=== PATIENT | male | born 1975 | race African-American/Black ===

== ENCOUNTER 2022-06-16 06:52 | Inpatient (IN) | payer OTHER ==
[2022-06-16 07:18] LABS: Urine Blood Negative (Negative); Urine Glucose Negative (Negative); Urine Protein Negative (Negative); Urine Specific Gravity 1.015 (1.005-1.030)
[2022-06-16] MEDS ORDERED: NA CHLORIDE 0.9% 1,000 ML ONE (07:26)
[2022-06-16 07:48] LABS: Absolute Lymphocytes (CBC) 1.8 K/uL (0.7-4.9); Hematocrit 43.6 % (39.6-49.0); Lymphocytes % 23.7 % (15.3-44.8); MCV 78.1 fL (80-100); MPV 8.1 fL (7.6-11.3); RBC Red Blood Cell Count 5.59 M/uL (4.33-5.43)
[2022-06-16 07:51] LABS: Urine Mucus Slight /HPF (None Seen); Urine RBC <5 /HPF (None Seen)
[2022-06-16 08:07] LABS: Albumin 3.7 g/dL (3.4-5.0); Bilirubin Total 0.3 mg/dL (0.2-1.0); Potassium 3.8 mmol/L (3.5-5.1); Protein, Total 7.8 g/dL (6.4-8.2)
--- NOTE | 2022-06-16 09:23 | RAD REPORT ---
EXAM DESCRIPTION: CT - Abdomen Pelvis W Contrast - 06/16/2022 8:51 am CLINICAL HISTORY: Abdominal pain COMPARISON: none. TECHNIQUE: Computed axial tomography of the abdomen pelvis was obtained. 100 cc Isovue-300 was admin istered intravenously. Oral contrast was not requested which limits evaluation of bowel and appendix All CT scans are performed using dose optimization technique as appropriate and may include automated exposure control or mA/KV adjustment according to patient size. FINDINGS: The liver, spleen, pancreas, adrenal and left kidney appear unremarkable. 2 millimeter calculus left kidney. No hydronephrosis There is no evidence of diverticulitis. The appendix is not well visualized but no gross abnormality is seen. Cholelithiasis. Gallbladder wall is thickened. Small to moderate umbilical hernia. Small to moderate right and small left inguinal hernias contain f at IMPRESSION: Cholelithiasis. Thickening of the gallbladder wall probably cholecystitis
--- NOTE | 2022-06-16 11:12 | RAD REPORT ---
EXAM DESCRIPTION: US - Abdomen Exam Limited - 06/16/2022 10:27 am CLINICAL HISTORY: Abdominal pain. COMPARISON: June 16, 2022 CT FINDINGS: 1 centimeter stone gallbladder neck. Gallbladder wall is moderately thickened measuring 6 millimeters Mild dilatation common bile duct IMPRESSION: Cholelithiasis. Thickened gallbladder wall probably cholecystitis. Mild dilatation common bile duct
--- NOTE | 2022-06-16 11:24 | ER ---
Nurse's Notes [facility] Name: Roni Gallagher Age: 46 yrs Sex: Male : 1975 Arrival Date: 06/16/2022 Time: 06:59 Bed 20 Private MD: Diagnosis: Acute cholecystitis;Other abdominal pain;Essential (primary) hypertension Presentation: 06/16 07:06 Chief complaint: Patient states: I am having lower back pain, I couldn't sleep very aa9 well. Coronavirus screen: Vaccine status: Patient reports receiving the 1st dose of the Covid vaccine. Ebola Screen: No symptoms or risks identified at this time. Initial Sepsis Screen: Does the patient meet any 2 criteria? HR > 90 bpm. Yes Does the patient have a suspected source of infection? No. Patient's initial sepsis screen is negative. Risk Assessment: Do you want to hurt yourself or someone else? Patient reports no desire to harm self or others. Onset of symptoms was June 16, 2022. 07:06 Method Of Arrival: Ambulatory aa9 07:06 Acuity: MELONY 3 aa9 Triage Assessment: 07:08 General: Appears comfortable, Behavior is calm, cooperative, appropriate for age. Pain: aa9 Complains of pain in low back area and left low back Pain currently is 7 out of 10 on a pain scale. EENT: No signs and/or symptoms were reported regarding the EENT system. Neuro: Level of Consciousness is awake, alert, obeys commands. Cardiovascular: Patient's skin is warm and dry. Respiratory: Airway is patent Respiratory effort is even, unlabored. GI: No signs and/or symptoms were reported involving the gastrointestinal system. : Denies urinary frequency. Derm: No signs and/or symptoms reported regarding the dermatologic system. Historical: - Allergies: 07:07 No Known Allergies; aa9 - Home Meds: 07:07 None [Active]; aa9 - PMHx: 07:07 Hypertensive disorder; aa9 - PSHx: 07:07 knee replacement; aa9 - Immunization history:: Client reports receiving the 1st dose of the Covid vaccine. - Social history:: Smoking status: Patient denies any tobacco usage or history of. Screenin:09 Abuse screen: Denies threats or abuse. Denies injuries from another. Nutritional aa9 screening: No deficits noted. Tuberculosis screening: No symptoms or risk factors identified. Fall Risk None identified. Assessment: 07:10 General: Appears in no apparent distress. Behavior is calm, cooperative, appropriate mb8 for age. Pain: Complains of pain in epigastric area Pain does not radiate. Pain. GI: Reports epigastric pain, Patient currently denies bloody stool, constipation, diarrhea, nausea, vomiting. : No deficits noted. Denies burning with urination, urinary frequency. 08:00 Reassessment: Patient and/or family updated on plan of care and expected duration. Pain mb8 level reassessed. Patient is alert, oriented x 3, equal unlabored respirations, skin warm/dry/pink. 09:03 Reassessment: Patient and/or family updated on plan of care and expected duration. Pain mb8 level reassessed. Patient is alert, oriented x 3, equal unlabored respirations, skin warm/dry/pink. 10:17 Reassessment: Patient and/or family updated on plan of care and expected duration. Pain mb8 level reassessed. Patient is alert, oriented x 3, equal unlabored respirations, skin warm/dry/pink. 13:18 Reassessment: Patient and/or family updated on plan of care and expected duration. Pain mb8 level reassessed. Patient is alert, oriented x 3, equal unlabored respirations, skin warm/dry/pink. 14:31 Reassessment: Patient and/or family updated on plan of care and expected duration. Pain mb8 level reassessed. Patient is alert, oriented x 3, equal unlabored respirations, skin warm/dry/pink. Vital Signs: 07:06 BP 133 / 93; Pulse 105; Resp 19 S; Pulse Ox 100% on R/A; Weight 121.11 kg (R); Height 5 aa9 ft. 11 in. (180.34 cm) (R); Pain 7/10; 07:33 BP 108 / 72; Pulse 92; Resp 16; Temp 97.7; Pulse Ox 100% on R/A; Pain 6/10; mb8 08:00 BP 117 / 75; Pulse 93; Resp 18; Pulse Ox 99% on R/A; mb8 09:10 BP 140 / 101; Pulse 85; Resp 18; Pulse Ox 99% on R/A; Pain 5/10; mb8 10:17 BP 132 / 98; Pulse 85; Pulse Ox 100% on R/A; Pain 5/10; mb8 13:17 BP 126 / 88; Pulse 78; Resp 16; Pulse Ox 100% on R/A; mb8 14:30 BP 122 / 80; Pulse 70; Resp 14; Temp 98; Pulse Ox 99% ; mb8 07:06 Body Mass Index 37.24 (121.11 kg, 180.34 cm) aa9 ED Course: 06:59 Patient arrived in ED. ja2 07:01 Marcus Drake DO is Attending Physician. ms3 07:03 Kalen Hager, DIANE is Primary Nurse. mb8 07:07 Triage completed. aa9 07:09 Arm band placed on. aa9 07:16 Patient has correct armband on for positive identification. Placed in gown. Bed in low mb8 position. Call light in reach. Side rails up X2. Client placed on continuous cardiac and pulse oximetry monitoring. NIBP monitoring applied. 07:16 No provider procedures requiring assistance completed. Urine collected:. mb8 07:24 Inserted saline lock: 20 gauge in right antecubital area, using aseptic technique. mb8 Blood collected. 07:24 CBC with Diff Sent. mb8 07:24 CMP Sent. mb8 08:53 CT Abd/Pelvis - IV Contrast Only In Process Unspecified. EDMS 10:29 US Abdomen Limited In Process Unspecified. EDMS 11:23 Rudy Israel MD is Hospitalizing Provider. ms3 Administered Medications: 07:32 Drug: NS 0.9% 1000 ml Route: IV; Rate: 1 bolus; Site: right antecubital; mb8 09:00 Follow up: IV Status: Completed infusion mb8 11:34 Drug: Zosyn (piperacillin-tazobactam) 3.375 grams Route: IVPB; Infused Over: 60 mins; mb8 Site: right antecubital; 12:00 Follow up: IV Status: Completed infusion mb8 12:40 Follow up: IV Status: Completed infusion mb8 Medication: 07:16 VIS not applicable for this client. mb8 Outcome: 11:24 Decision to Hospitalize by Provider. ms3 14:55 Admitted to accompanied by nurse, via wheelchair, with chart, Report called to Surgery hui Ramos 14:55 Admitted to accompanied by nurse, via wheelchair, with chart, Report called to surgery rn at bedside, DIANE Ramos 14:55 Condition: stable 14:56 Patient left the ED. mb8 Signatures: Dispatcher [employer] EDMS Marcus Drake, DO ms3 Shakila Del Angel Aylin, RN RN aa9 Kalen Hager RN RN mb8 Corrections: (The following items were deleted from the chart) 07:33 07:33 BP 108 / 72; Pulse 92bpm; Resp 16bpm; Pulse Ox 100% RA; Temp 97.7F; Pain 4/10; mb8mb8
--- NOTE | 2022-06-16 11:25 | EDPHYS ---
Physician Documentation [facility] Name: Roni Gallagher Age: 46 yrs Sex: Male : 1975 Arrival Date: 06/16/2022 Time: 06:59 Bed 20 Private MD: ED Physician Marcus Drake HPI: 06/16 08:09 This 46 yrs old Black Male presents to ER via Ambulatory with complaints of Abdominal ms3 pain. 08:10 The patient presents with abdominal pain right lower quadrant. Onset: The ms3 symptoms/episode began/occurred yesterday. The symptoms do not radiate. Associated signs and symptoms: none. The symptoms are described as achy. Modifying factors: the symptoms are aggravated by nothing. 08:34 Severity of pain: At its worst the pain was severe in the emergency department the pain ms3 is unchanged. Historical: - Allergies: 07:07 No Known Allergies; aa9 - Home Meds: 07:07 None [Active]; aa9 - PMHx: 07:07 Hypertensive disorder; aa9 - PSHx: 07:07 knee replacement; aa9 - Immunization history:: Client reports receiving the 1st dose of the Covid vaccine. - Social history:: Smoking status: Patient denies any tobacco usage or history of. ROS: 08:34 Constitutional: Negative for fever, and chills. Neck: Negative for injury, pain, and ms3 swelling, Cardiovascular: Negative for chest pain, and palpitations. Respiratory: Negative for shortness of breath, cough, wheezing, and pleuritic chest pain. 08:34 Skin: Negative for injury, rash, and discoloration, Psych: Negative for depression, anxiety, suicide ideation, homicidal ideation, and hallucinations. 08:34 Abdomen/GI: Positive for abdominal pain. 08:34 All other systems are negative. Exam: 08:34 Constitutional: This is a well developed, well nourished patient who is awake, alert, ms3 and in no acute distress. Head/Face: Normocephalic, atraumatic. Chest/axilla: Normal chest wall appearance and motion. Nontender with no deformity. Cardiovascular: Regular rate and rhythm with a normal S1 and S2. No gallops, murmurs, or rubs. Normal PMI, no JVD. No pulse deficits. Respiratory: Lungs have equal breath sounds bilaterally, clear to auscultation and percussion. No rales, rhonchi or wheezes noted. No increased work of breathing, no retractions or nasal flaring. Skin: Warm, dry with normal turgor. Normal color with no rashes, no lesions, and no evidence of cellulitis. MS/ Extremity: Pulses equal, no cyanosis. Neurovascular intact. Full, normal range of motion. Psych: Awake, alert, with orientation to person, place and time. Behavior, mood, and affect are within normal limits. 08:34 Abdomen/GI: Inspection: abdomen appears normal, Bowel sounds: normal, Palpation: moderate abdominal tenderness, in the right lower quadrant. Vital Signs: 07:06 BP 133 / 93; Pulse 105; Resp 19 S; Pulse Ox 100% on R/A; Weight 121.11 kg (R); Height 5 aa9 ft. 11 in. (180.34 cm) (R); Pain 7/10; 07:33 BP 108 / 72; Pulse 92; Resp 16; Temp 97.7; Pulse Ox 100% on R/A; Pain 6/10; mb8 08:00 BP 117 / 75; Pulse 93; Resp 18; Pulse Ox 99% on R/A; mb8 09:10 BP 140 / 101; Pulse 85; Resp 18; Pulse Ox 99% on R/A; Pain 5/10; mb8 10:17 BP 132 / 98; Pulse 85; Pulse Ox 100% on R/A; Pain 5/10; mb8 13:17 BP 126 / 88; Pulse 78; Resp 16; Pulse Ox 100% on R/A; mb8 14:30 BP 122 / 80; Pulse 70; Resp 14; Temp 98; Pulse Ox 99% ; mb8 07:06 Body Mass Index 37.24 (121.11 kg, 180.34 cm) aa9 MDM: 07:18 Patient medically screened. ms3 08:34 Differential diagnosis: appendicitis, bowel obstruction, diverticulitis, gastritis, ms3 gastroesophageal reflux disease. 11:25 Data reviewed: vital signs, nurses notes, lab test result(s), radiologic studies, and ms3 as a result, I will admit patient. Counseling: I had a detailed discussion with the patient and/or guardian regarding: the historical points, exam findings, and any diagnostic results supporting the discharge/admit diagnosis, lab results, the need for further work-up and treatment in the hospital. ED course: Discussed case with Dr Stout and will try for OR today. Keep npo. Discussed case with Dr Israel and he accepts patient. Discussed plan for admission with patient and he understands/ agrees with plan.. 06/16 07:18 Order name: Urine Dipstick-Ancillary; Complete Time: 07:56 EDMS 06/16 07:23 Order name: CBC with Diff; Complete Time: 07:56 ms3 06/16 07:23 Order name: CMP; Complete Time: 08:08 ms3 06/16 07:23 Order name: Urine Microscopic Only; Complete Time: 07:56 ms3 06/16 12:32 Order name: CBC with Automated Diff EDMS 06/16 12:32 Order name: CBC with Automated Diff EDMS 06/16 07:23 Order name: CT Abd/Pelvis - IV Contrast Only; Complete Time: 09:28 ms3 06/16 09:29 Order name: US Abdomen Limited; Complete Time: 11:15 ms3 06/16 12:32 Order name: Comprehensive Metabolic Panel EDMS 06/16 12:32 Order name: Comprehensive Metabolic Panel EDMS 06/16 12:32 Order name: Magnesium EDMS 06/16 12:32 Order name: Magnesium EDMS 06/16 12:34 Order name: SARS RAPID eb 06/16 14:05 Order name: SARS-COV-2 Antigen Rapid EDMS 06/16 07:23 Order name: IV Saline Lock; Complete Time: 07:24 ms3 06/16 07:23 Order name: Labs collected and sent; Complete Time: 07:24 ms3 06/16 07:23 Order name: Urine Dipstick-Ancillary (obtain specimen); Complete Time: 07:24 ms3 06/16 11:28 Order name: NPO; Complete Time: 11:28 mb8 06/16 12:30 Order name: CONS Physician Consult EDMS 06/16 12:32 Order name: NPO EDMS Administered Medications: 07:32 Drug: NS 0.9% 1000 ml Route: IV; Rate: 1 bolus; Site: right antecubital; mb8 09:00 Follow up: IV Status: Completed infusion mb8 11:34 Drug: Zosyn (piperacillin-tazobactam) 3.375 grams Route: IVPB; Infused Over: 60 mins; mb8 Site: right antecubital; 12:00 Follow up: IV Status: Completed infusion mb8 12:40 Follow up: IV Status: Completed infusion mb8 Disposition Summary: 06/16/22 11:24 Hospitalization Ordered Hospitalization Status: Inpatient Admission ms3 Provider: Rudy Israel ms3 Location: Telemetry/MedSurg (Inpatient) ms3 Condition: Stable ms3 Problem: new ms3 Symptoms: are unchanged ms3 Bed/Room Type: Standard ms3 Room Assignment: ms3 Diagnosis - Acute cholecystitis ms3 - Other abdominal pain ms3 - Essential (primary) hypertension ms3 Forms: - Medication Reconciliation Form ms3 - SBAR form ms3 Signatures: Dispatcher [employer] EDMarcus Davies, DO ms3 Laine Bailey RN RN aa9 Kalen Hager RN RN mb8 Corrections: (The following items were deleted from the chart) 08:34 08:10 The symptoms are described as achy, ms3 ms3
[2022-06-16] MEDS ORDERED: NA CHLORIDE 0.9% 100 ML IV ONE (11:27)
[2022-06-16] MEDS ORDERED: PIPERACIL/TAZO 3.375 GM VIAL IV ONE (11:27)
[2022-06-16] MEDS ORDERED: MORPHINE 4 MG/ML SYR IV PRN (12:28)
[2022-06-16] MEDS ORDERED: ONDANSETRON 4 MG/2 ML VIAL IV PRN ×2 (12:28)
--- NOTE | 2022-06-16 12:32 | P.HP ---
Certification for Inpatient Patient admitted to: Inpatient Practitioner: I am a practitioner with admitting privileges, knowledge of patient current condition, hospital course, and medical plan of care. Services: Services provided to patient in accordance with Admission requirements found in Title 42 Section 412.3 of the Code of Federal Regulations Patient History Date of Service: 06/16/22 Reason for admission: acute cholecystitis, cholelithiasis History of Present Illness: 46yo M, PMH: HTN Presents to ED due to worsening RUQ/epigastric pain since yesterday. He reports intermittent abdominal pains, more frequent in last month. No particular association. Nothing improves/worsens the pain. No radiation. +chills, no fever, +nausea, no diarrhea. Last ate yesterday. In the ED, CT abd/pelvis and rUQ U/S: cholelithiasis at GB neck, GB wall thickening concerning for cholecystitis. Dr. Stout consulted in ED, with tentative plan for lap malgorzata later today. Patient does not appear septic. Allergies No Known Allergies Allergy (Verified 06/16/22 13:58) - Past Medical/Surgical History -: HTN -: R knee surgery - Family History Father -: Cancer (colon) - Social History Smoking Status: Never smoker Alcohol use: Yes Place of Residence: Home Review of Systems 10-point ROS is otherwise unremarkable Physical Examination - Physical Exam General: Alert, Oriented x3, Other (uncomfortable appearing) Neck: Supple, No LAD Respiratory: Clear to auscultation bilaterally, Normal air movement Cardiovascular: No edema, Regular rate/rhythm Gastrointestinal: Soft and benign, Non-distended, Tenderness (RUQ) Musculoskeletal: No contractures, No tenderness Integumentary: No rashes, No significant lesion Neurological: Normal speech, Normal strength at 5/5 x4 extr, Normal affect - Studies Laboratory Data (last 24 hrs) 06/16/22 07:30: Sodium 134 L, Potassium 3.8, BUN 12, Creatinine 1.55 H, Glucose 92, Total Bilirubin 0.3, AST 34, ALT 32, Alkaline Phosphatase 43 L 06/16/22 07:30: WBC 7.40, Hgb 14.5, Hct 43.6, Plt Count 281 Assessment and Plan - Advance Directives Does patient have a Living Will: No Does patient have a Durable POA for Healthcare: No Physician Review Additional Text: Problem list Cholelithiasis with Acute cholecystitis Hypertension Patient with right upper quadrant tenderness, CT and ultrasound done in ED, with gallbladder wall thickening, findings concerning for cholecystitis Stone at neck of gallbladder, mild dilatation Patient does not appear septic Received Zosyn in the ED, continue Zosyn N.p.o., IV fluids General surgery consulted in the ED, possible surgery today SCDs VTE: SCDs Code: full Dispo: home, ~1-2 days Time Spent Managing Pts Care (In Minutes): 65
[2022-06-16 14:04] LABS: SARS-CoV-2 Antigen Rapid Res Negative (Negative)
[2022-06-16] MEDS: NA CHLORIDE 0.9% 1,000 ML IV SCH ×2 (14:45→23:00)
[2022-06-16] MEDS ORDERED: SUCCINYLCHOLINE 20 MG/ML (10 ML) IV ONE (15:58)
[2022-06-16] MEDS ORDERED: MIDAZOLAM HCL 2 MG/2 ML INJ ONE (16:03)
[2022-06-16] MEDS ORDERED: ROCURONIUM 50 MG/5 ML VIAL IV ONE (16:03)
[2022-06-16] MEDS ORDERED: FENTANYL CITR 100 MCG/2 ML ONE (16:03)
[2022-06-16] MEDS ORDERED: propofoL 200 MG/20 ML VIAL IV ONE ×2 (16:03→17:06)
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
[2022-06-16] MEDS ORDERED: GLYCOPYRROLATE 0.2 MG/ML SYR ONE (16:55)
[2022-06-16] MEDS ORDERED: dexAMETHasone 10 MG/ML VIAL ONE (17:30)
--- NOTE | 2022-06-16 18:14 | P.OP ---
Preoperative diagnosis: Acute cholecystitis with cholelithiasis Postoperative diagnosis: The same Primary procedure: Surgery canceled during induction of anesthesia Operative Technique: The patient brought the operating room and placed supine on the table. Anesthesia went through the usual protocol for placing the patient asleep. The patient has large tongue, and become apneic. It was extremely difficult to bag the patient due to the loss of airway. [place] scope was was used on 2 attempts. We were not able to secure an adequate airway. A CODE BLUE was called to ensure we had adequate personnel should the situation deteriorate, but we were able to eventually control his airway While the patient has strong need for surgery due to the impaction of the stone, he is not septic, his white cell count is normal, he has no elevation of his liver enzymes. I chose to cancel his surgery, we will allow him to recover from this episode, we will discuss with him and with anesthesia may be early next week about possible airway options that can be utilized. At the end of the procedure the patient was breathing spontaneously, easily able to maintain 100%, his heart rate had returned to normal and as did his blood pressure. He was stable and sent to the recovery room. Transferred to: Recovery Room Condition: Good
--- NOTE | 2022-06-16 18:23 | RAD REPORT ---
EXAM DESCRIPTION: RAD - Chest Single View - 06/16/2022 6:15 pm CLINICAL HISTORY: R/O aspiration COMPARISON: No comparisons FINDINGS: Lines: None. Lungs: No evidence of edema or pneumonia. Pleural: No significant pleural effusions or pneumothorax. Cardiac: The heart size is within normal limits. Mediastinum: Uncoiling of the thoracic aorta. Bones: No acute fractures. Other: Postoperative finding in the left chest wall. IMPRESSION: No acute cardiopulmonary disease.
[2022-06-16] MEDS: PIPER TAZO 3.375 GM in NA CHLORIDE 0.9% 100 ML IV SCH (20:24)
--- NOTE | 2022-06-16 20:27 | P.PN ---
Date of Service: 06/16/22 Brief event note: Patient taken to [facility] for lap malgorzata. Code Castillo called just after ~5pm Upon arrival - patient being bagged, difficulty establishing airway secondary to large tongue, inability to visualize vocal cords. 2 additional attempts made by Anesthesiologist using glidescope and were unsuccessful. Decision was made to cancel procedure. Patient was maintained on oxygen supplementation while anesthesia wore off. He was responsive, tachycardic, coughing, and improved. Given solumedrol CXR, EKG ordered will monitor in ICU overnight ice chips/sips of water overnight if does ok after bedside swallow
[2022-06-16 22:25] VITALS: BMI 37.2
[2022-06-17] MEDS: NA CHLORIDE 0.9% 1,000 ML IV SCH (01:36)
[2022-06-17] MEDS: PIPER TAZO 3.375 GM in NA CHLORIDE 0.9% 100 ML IV SCH (03:56)
[2022-06-17 04:39] LABS: Absolute Lymphocytes (CBC) 0.6 K/uL (0.7-4.9); Hematocrit 43.2 % (39.6-49.0); Lymphocytes % 6.2 % (15.3-44.8); MCV 78.5 fL (80-100); MPV 7.6 fL (7.6-11.3); RBC Red Blood Cell Count 5.51 M/uL (4.33-5.43)
[2022-06-17 04:50] LABS: Albumin 3.2 g/dL (3.4-5.0); Bilirubin Total 0.6 mg/dL (0.2-1.0); Magnesium 1.9 mg/dL (1.8-2.4); Potassium 4.7 mmol/L (3.5-5.1); Protein, Total 7.4 g/dL (6.4-8.2)
[2022-06-17 08:30] VITALS: TEMP 96.8
[2022-06-17 09:44] VITALS: O2SAT 100
[2022-06-17 10:17] VITALS: BP 135/82
[2022-06-17] MEDS ORDERED: PIPER TAZO 3.375 GM in NA CHLORIDE 0.9% 100 ML IV SCH (12:00)
--- NOTE | 2022-06-17 14:35 | P.DS ---
Admission Date: 06/16/22 Discharge Date: 06/17/22 Disposition: ROUTINE DISCHARGE Discharge Condition: GOOD Reason for Admission: acute cholecystitis, cholelithiasis Consultations: General surgery - Dr. Stout Brief History of Present Illness: 46yo M, PMH: HTN Presents to ED due to worsening RUQ/epigastric pain since yesterday. He reports intermittent abdominal pains, more frequent in last month. No particular association. Nothing improves/worsens the pain. No radiation. +chills, no fever, +nausea, no diarrhea. Last ate yesterday. In the ED, CT abd/pelvis and rUQ U/S: cholelithiasis at GB neck, GB wall thickening concerning for cholecystitis. Dr. Stout consulted in ED, with tentative plan for lap malgorzata later today. Patient does not appear septic. Hospital Course: Problem list Acute cholecystitis with cholelithiasis Hypertension Patient presented with abdominal pain and nausea. CT abdomen and ultrasound noted gallbladder stone and mild wall thickening concerning for cholecystitis. General Surgery was consulted, and took patient to OR in evening of 06/16 for planned lap cholecystectomy. Patient was a difficult airway to intubate. After difficulty with multiple attempts, the surgery was cancelled. Patient was monitored overnight and did well. Diet advanced to full liquids. He was afebrile, without leukocytosis, pain improved. Dr. Stout recommended 2 weeks of antibiotics, continue full liquid diet at home, slowly incorporating soft foods - low fat/low fiber. Follow up with Dr. Stout in 1-2 weeks, plan for elective cholecystectomy in near future. Follow up with PCP within 1 week. Vital Signs/Physical Exam: Temp Pulse Resp BP Pulse Ox 96.8 F 113 H 23 H 135/82 100 06/17/22 09:50 06/17/22 09:50 06/17/22 09:50 06/17/22 09:50 06/17/22 09:50 General: Alert, In no apparent distress, Oriented x3 HEENT: EOMI, Sclerae nonicteric Neck: Supple, No LAD Respiratory: Clear to auscultation bilaterally, Normal air movement Cardiovascular: No edema, Regular rate/rhythm Gastrointestinal: Soft and benign, Non-distended, Tenderness (Minimal RUQ) Musculoskeletal: No swelling, No tenderness Integumentary: No rashes, No significant lesion Neurological: Normal speech, Normal affect Laboratory Data at Discharge: WBC 10.20 K/uL (4.3-10.9) 06/17/22 04:15 Hgb 14.5 g/dL (13.6-17.9) 06/17/22 04:15 Hct 43.2 % (39.6-49.0) 06/17/22 04:15 Plt Count 288 K/uL (152-406) 06/17/22 04:15 Sodium 135 mmol/L (136-145) L 06/17/22 04:15 Potassium 4.7 mmol/L (3.5-5.1) D 06/17/22 04:15 BUN 13 mg/dL (7-18) 06/17/22 04:15 Creatinine 1.44 mg/dL (0.55-1.3) H 06/17/22 04:15 Glucose 111 mg/dL (74-106) H 06/17/22 04:15 Magnesium 1.9 mg/dL (1.8-2.4) 06/17/22 04:15 Total Bilirubin 0.6 mg/dL (0.2-1.0) 06/17/22 04:15 AST 38 U/L (15-37) H 06/17/22 04:15 ALT 30 U/L (12-78) 06/17/22 04:15 Alkaline Phosphatase 36 U/L (45-117) L 06/17/22 04:15 Home Medications: Lisinopril/Hydrochlorothiazide [Lisinopril-Hctz 20-12.5 mg Tab] 1 each PO BEDTIME 06/17/22 levoFLOXacin [Levofloxacin] 750 mg PO DAILY 14 Days #14 tab 06/17/22 metroNIDAZOLE [Flagyl] 500 mg PO Q8H 14 Days #42 tab 06/17/22 New Medications: metroNIDAZOLE [Flagyl] 500 mg PO Q8H 14 Days #42 tab levoFLOXacin [Levofloxacin] 750 mg PO DAILY 14 Days #14 tab Physician Discharge Instructions: Patient presented with abdominal pain and nausea. CT abdomen and ultrasound noted gallbladder stone and mild wall thickening concerning for cholecystitis. General Surgery was consulted, and took patient to OR in evening of 06/16 for planned lap cholecystectomy. Patient was a difficult airway to intubate. After difficulty with multiple attempts, the surgery was cancelled. Patient was monitored overnight and did well. Diet advanced to full liquids. He was afebrile, without leukocytosis, pain improved. Dr. Stout recommended 2 weeks of antibiotics, continue full liquid diet at home, slowly incorporating soft foods - low fat/low fiber. Follow up with Dr. Stout in 1-2 weeks, plan for elective cholecystectomy in near future. Follow up with PCP within 1 week. Followup: Varun Stout MD [ACTIVE - CAN ADMIT] - (follow up in 1-2 weeks to set up surg.) Michael Valentin MD [OUTSIDE PHYSICIAN] - (follow up in one week. call for an apointment) Time spent managing pt's care (in minutes): 45
--- NOTE | 2022-06-19 16:05 | EKG ---
Test Date: 2022-06-16 Test Time: 18:01:54 Bridge Expert: MANDEEP MEASUREMENT RESULTS: Intervals: Rate: 105 NM: 148 QRSD: 84 QT: 328 QTc: 433 [place]: P: 55 NM: 148 QRS: 43 T: 29 INTERPRETIVE STATEMENTS: Sinus tachycardia Early repolarization Otherwise normal ECG No previous ECG available for comparison Electronically Signed On 06-19-22 15:59:59 CDT by Gilbert Vila
== END 2022-06-17 10:15 | disposition home or self-care (01) | DRG 446 ==
LOC: ER 06:52 → ERHOLD 12:27 → 3RD-ICU 19:38
PROVIDERS: ADMIT Hospitalist; ATTEND Hospitalist
DX: K80.00 Calculus of gallbladder with acute cholecystitis without obstruction (principal); I10 Essential (primary) hypertension; T41.45XA Adverse effect of unspecified anesthetic, initial encounter; R06.81 Apnea, not elsewhere classified; Z53.8 Procedure and treatment not carried out for other reasons; Z28.311 Partially vaccinated for COVID-19; Z96.659 Presence of unspecified artificial knee joint; Z79.899 Other long term (current) drug therapy; Z20.822 Contact with and (suspected) exposure to COVID-19
CPT/HCPCS: 36415; 71045; 74177; 76705; 80053; 81003; 81015; 83735; 85025; 87811; 93005; 94760; 96361; 96365; 99285; J0330; J1100; J2250; J2543; J2704; J3010; J7030; Q9967

== ENCOUNTER 2022-07-10 02:22 | Inpatient (IN) | payer OTHER, SELFPAY ==
[2022-07-10] MEDS ORDERED: MORPHINE 4 MG/ML SYR ONE (02:59)
[2022-07-10] MEDS ORDERED: ONDANSETRON 4 MG/2 ML VIAL ONE ×2 (02:59→10:51)
[2022-07-10 03:23] LABS: Urine Blood Negative (Negative); Urine Glucose Negative (Negative); Urine Protein Negative (Negative)
[2022-07-10 03:44] LABS: Absolute Lymphocytes (CBC) 2.9 K/uL (0.7-4.9); Lymphocytes % 40.6 % (15.3-44.8); MPV 8.2 fL (7.6-11.3); RBC Red Blood Cell Count 5.63 M/uL (4.33-5.43)
[2022-07-10 04:03] LABS: Albumin 3.3 g/dL (3.4-5.0); Bilirubin Total 0.4 mg/dL (0.2-1.0); Potassium 3.5 mmol/L (3.5-5.1); Protein, Total 7.3 g/dL (6.4-8.2)
[2022-07-10 04:28] LABS: Urine RBC <5 /HPF (None Seen)
[2022-07-10] MEDS ORDERED: PIPERACIL/TAZO 4.5 GM VIAL IV ONE (04:46)
[2022-07-10] MEDS ORDERED: NA CHLORIDE 0.9% 1,000 ML ONE ×2 (04:46→06:13)
[2022-07-10] MEDS ORDERED: NA CHLORIDE 0.9% 100 ML IV ONE (04:46)
--- NOTE | 2022-07-10 05:12 | ER ---
Nurse's Notes [facility] Name: Roni Gallagher Jr Age: 46 yrs Sex: Male : 1975 Arrival Date: 07/10/2022 Time: 02:25 Bed 25 Private MD: Diagnosis: Acute cholecystitis Presentation: 07/10 02:30 Chief complaint: Patient states: "I think it is my gallbladder. Last time I had pain tw5 like this it was my gallbladder." Patient states the last time he ate was at 1800 and it was a burger. Coronavirus screen: Vaccine status: Patient reports receiving the 2nd dose of the covid vaccine. Unknown. Ebola Screen: Patient negative for fever greater than or equal to 101.5 degrees Fahrenheit, and additional compatible Ebola Virus Disease symptoms Patient denies exposure to infectious person. Patient denies travel to an Ebola-affected area in the 21 days before illness onset. Initial Sepsis Screen: Does the patient meet any 2 criteria? HR > 90 bpm. Does the patient have a suspected source of infection? Yes: Acute abdominal pain. Risk Assessment: Do you want to hurt yourself or someone else? Patient reports no desire to harm self or others. Onset of symptoms was July 10, 2022 at 02:00. 02:30 Method Of Arrival: Ambulatory tw5 02:30 Acuity: MELONY 3 tw5 Triage Assessment: 02:31 General: Appears in no apparent distress. Behavior is calm, cooperative, appropriate tw5 for age. Pain: Complains of pain in diaphragm Pain currently is 8 out of 10 on a pain scale. GI: Reports lower abdominal pain. Historical: - Allergies: 02: No Known Allergies; tw5 - Home Meds: 02:33 lisinopril 20 mg Oral tab 1 tab once daily [Active]; tw5 - PMHx: 02:31 "Difficult Intubation"; Hypertensive disorder; tw5 - PSHx: 02:31 knee replacement; tw5 - Immunization history:: Flu vaccine is not up to date. - Social history:: Smoking status: Patient denies any tobacco usage or history of. Screenin:12 Abuse screen: Denies threats or abuse. Denies injuries from another. Nutritional as6 screening: No deficits noted. Tuberculosis screening: No symptoms or risk factors identified. Fall Risk None identified. Assessment: 03:12 General: Appears in no apparent distress. Behavior is calm, cooperative. Pain: as6 Complains of pain in epigastric area, right upper quadrant and left upper quadrant. Neuro: Level of Consciousness is awake, alert, obeys commands. Respiratory: Respiratory effort is even, unlabored. GI: Abd is soft Abdomen is tender to palpation in epigastric area, right upper quadrant and left upper quadrant Reports upper abdominal pain. 04:56 Reassessment: Patient states symptoms have improved. as6 Vital Signs: 02:30 BP 145 / 106; Pulse 97; Resp 18; Temp 99; Pulse Ox 100% ; Weight 108.86 kg; Height 5 tw5 ft. 11 in. (180.34 cm); Pain 8/10; 04:56 BP 108 / 77; Pulse 82; Resp 16 S; Pulse Ox 97% on R/A; as6 06:34 BP 112 / 74; Pulse 85; Resp 18 S; Pulse Ox 99% on R/A; as6 02:30 Body Mass Index 33.47 (108.86 kg, 180.34 cm) tw5 ED Course: 02:25 Patient arrived in ED. jj6 02:31 Triage completed. tw5 02:31 Arm band placed on. tw5 02:33 Hilda Gregory MD is Attending Physician. sd2 02:54 Vega Chin, DIANE is Primary Nurse. as6 03:05 Inserted saline lock: 20 gauge in left antecubital area, using aseptic technique. Blood as6 collected. 03:11 CBC with Diff Sent. as6 03:11 CMP Sent. as6 03:11 Lipase Sent. as6 03:12 Placed in gown. Bed in low position. Call light in reach. Side rails up X 1. as6 03:18 US Abdomen Limited In Process Unspecified. EDMS 05:11 Varun Stout MD is Hospitalizing Provider. sd2 06:33 No provider procedures requiring assistance completed. Patient admitted, IV remains in as6 place. Administered Medications: 03:14 Drug: morphine 4 mg Route: IVP; Infused Over: 4 mins; Site: left antecubital; as6 06:33 Follow up: Response: No adverse reaction as6 03:14 Drug: Zofran (Ondansetron) 4 mg Route: IVP; Site: left antecubital; as6 06:33 Follow up: Response: No adverse reaction as6 04:58 Drug: NS 0.9% 1000 ml Route: IV; Rate: 1000 ml; Site: left antecubital; as6 06:33 Follow up: Response: No adverse reaction; IV Status: Completed infusion; IV Intake: as6 1000ml 04:58 Drug: Zosyn (piperacillin-tazobactam) 4.5 grams Route: IVPB; Infused Over: 60 mins; as6 Site: left antecubital; 06:33 Follow up: Response: No adverse reaction; IV Status: Completed infusion; IV Intake: as6 100ml Medication: 03:14 VIS not applicable for this client. as6 Intake: 06:33 IV: 100ml; Total: 100ml. as6 06:33 IV: 1000ml; Total: 1100ml. as6 Outcome: 05:11 Decision to Hospitalize by Provider. sd2 06:33 Admitted to ER Hold. Please see [facility] for further documentation. as6 06:33 Condition: stable 06:33 Instructed on the need for admit. 11:04 Patient left the ED. tp1 Signatures: Dispatcher [employer] Elif Sequeira tw5 Denita Camp jj6 Vega Chin RN RN as6 Elif Nails RN RN tp1 Hilda Gregory MD MD sd2
--- NOTE | 2022-07-10 05:12 | EDPHYS ---
Physician Documentation [facility] Name: Roni Gallagher Jr Age: 46 yrs Sex: Male : 1975 Arrival Date: 07/10/2022 Time: 02:25 Bed 25 Private MD: ED Physician Hilda Gregory HPI: 07/10 02:54 This 46 yrs old Black Male presents to ER via Ambulatory with complaints of Abdominal sd2 Pain. 02:54 46 yo M presents with CC of upper abdominal pain that started tonight. Reports similar sd2 symptoms 3 weeks ago when he was seen at our hospital with a gallbladder issue. States was sent home with antibiotics and to follow up with surgeon for elective cholecystectomy. Reports he last ate a burger around 6 or 7PM tonight. Did not take anything for the pain prior to arrival. Denies fevers, vomiting, diarrhea or urinary symptoms. Endorses nausea.. Historical: - Allergies: 02:31 No Known Allergies; tw5 - Home Meds: 02:33 lisinopril 20 mg Oral tab 1 tab once daily [Active]; tw5 - PMHx: 02:31 "Difficult Intubation"; Hypertensive disorder; tw5 - PSHx: 02:31 knee replacement; tw5 - Immunization history:: Flu vaccine is not up to date. - Social history:: Smoking status: Patient denies any tobacco usage or history of. ROS: 02:54 Constitutional: Negative for fever, chills, and weight loss, Eyes: Negative for injury, sd2 pain, redness, and discharge, Cardiovascular: Negative for chest pain, palpitations, and edema, Respiratory: Negative for shortness of breath, cough, wheezing. 02:54 : Negative for dysuria, frequency or hematuria. MS/Extremity: Negative for injury and deformity, Skin: Negative for injury, rash, and discoloration, Neuro: Negative for headache, numbness and tingling. 02:54 Abdomen/GI: Positive for abdominal pain, nausea, Negative for vomiting, diarrhea. Exam: 02:54 Constitutional: This is a well developed, well nourished patient who is awake, alert, sd2 and in no acute distress. Head/Face: Normocephalic, atraumatic. Eyes: EOMI, normal conjunctiva bilaterally Chest/axilla: Normal chest wall appearance and motion. Nontender with no deformity. Cardiovascular: Regular rate and rhythm with a normal S1 and S2. No gallops, murmurs, or rubs. 2+ distal pulses. Respiratory: Lungs have equal breath sounds bilaterally, clear to auscultation and percussion. No rales, rhonchi or wheezes noted. No increased work of breathing, no retractions or nasal flaring. Abdomen/GI: Soft, ND, mild TTP of epigastrum and RUQ, no rebound or guarding Skin: Warm, dry with normal turgor. Normal color with no rashes, no lesions, and no evidence of cellulitis. MS/ Extremity: Pulses equal, no cyanosis. Neurovascular intact. Full, normal range of motion. Ambulatory without difficulty. Psych: Awake, alert, with orientation to person, place and time. Behavior, mood, and affect are within normal limits. Vital Signs: 02:30 BP 145 / 106; Pulse 97; Resp 18; Temp 99; Pulse Ox 100% ; Weight 108.86 kg; Height 5 tw5 ft. 11 in. (180.34 cm); Pain 8/10; 04:56 BP 108 / 77; Pulse 82; Resp 16 S; Pulse Ox 97% on R/A; as6 06:34 BP 112 / 74; Pulse 85; Resp 18 S; Pulse Ox 99% on R/A; as6 02:30 Body Mass Index 33.47 (108.86 kg, 180.34 cm) tw5 MDM: 02:33 Patient medically screened. sd2 02:54 Differential Diagnosis Gastritis, cholecystitis, pancreatitis, SBO, diverticulitis, sd2 kidney stone, appendicitis, UTI, dehydration, electrolyte abnormality among others. Data reviewed: vital signs, nurses notes. 05:10 Data reviewed: lab test result(s), radiologic studies. Counseling: I had a detailed sd2 discussion with the patient and/or guardian regarding: the historical points, exam findings, and any diagnostic results supporting the discharge/admit diagnosis, lab results, radiology results, the need for further work-up and treatment in the hospital. 07/10 02:53 Order name: CBC with Diff; Complete Time: 04:24 sd2 07/10 02:53 Order name: CMP; Complete Time: 04:24 sd2 07/10 02:53 Order name: Lipase; Complete Time: 04:24 sd2 07/10 02:53 Order name: Urine Microscopic Only; Complete Time: 04:29 sd2 07/10 03:23 Order name: Urine Dipstick-Ancillary; Complete Time: 04:24 EDMS 07/10 05:15 Order name: SARS RAPID sd2 07/10 02:53 Order name: US Abdomen Limited sd2 07/10 05:17 Order name: Basic Metabolic Panel EDMS 07/10 05:17 Order name: Basic Metabolic Panel EDMS 07/10 05:17 Order name: CBC with Automated Diff EDMS 07/10 05:17 Order name: CBC with Automated Diff EDMS 07/10 02:53 Order name: IV Saline Lock; Complete Time: 03:11 sd2 07/10 02:53 Order name: Labs collected and sent; Complete Time: 03:11 sd2 07/10 02:53 Order name: Urine Dipstick-Ancillary (obtain specimen); Complete Time: 03:25 sd2 07/10 05:17 Order name: NPO EDMS Administered Medications: 03:14 Drug: morphine 4 mg Route: IVP; Infused Over: 4 mins; Site: left antecubital; as6 06:33 Follow up: Response: No adverse reaction as6 03:14 Drug: Zofran (Ondansetron) 4 mg Route: IVP; Site: left antecubital; as6 06:33 Follow up: Response: No adverse reaction as6 04:58 Drug: NS 0.9% 1000 ml Route: IV; Rate: 1000 ml; Site: left antecubital; as6 06:33 Follow up: Response: No adverse reaction; IV Status: Completed infusion; IV Intake: as6 1000ml 04:58 Drug: Zosyn (piperacillin-tazobactam) 4.5 grams Route: IVPB; Infused Over: 60 mins; as6 Site: left antecubital; 06:33 Follow up: Response: No adverse reaction; IV Status: Completed infusion; IV Intake: as6 100ml Disposition Summary: 07/10/22 05:11 Hospitalization Ordered Hospitalization Status: Observation sd2 Provider: Varun Stout sdBettye Condition: Stable sd2 Problem: an acute exacerbation sd2 Symptoms: have improved sd2 Bed/Room Type: Standard sd2 Location: [facility] ER HOLD(07/10/22 05:27) Room Assignment: ERHOLD-(07/10/22 05:27) mw Diagnosis - Acute cholecystitis sd2 Forms: - Medication Reconciliation Form sd2 - SBAR form sd2 Signatures: Dispatcher [employer] Cheryl Paz RN RN mw Wood, Tiffany tw5 Vega Chin RN RN as6 Hilda Gregory MD MD 2 Corrections: (The following items were deleted from the chart) 05:27 05:11 Telemetry/MedSurg (observation) co2 05:27 05:11 sd2
[2022-07-10] MEDS ORDERED: ACETAMINOPHEN 500 MG TAB PO PRN (05:14)
[2022-07-10] MEDS ORDERED: ONDANSETRON 4 MG/2 ML VIAL IV PRN ×2 (05:14→13:28)
[2022-07-10] MEDS ORDERED: MORPHINE 4 MG/ML SYR IV PRN ×2 (05:14→13:31)
[2022-07-10 05:57] VITALS: BMI 33.4
[2022-07-10] MEDS ORDERED: NA CHLORIDE 0.9% 1,000 ML IV SCH (06:00)
[2022-07-10 06:33] LABS: SARS-CoV-2 Antigen Rapid Res Negative (Negative)
[2022-07-10] MEDS ORDERED: INFLUENZA VACCINE (for 6+ mo) 0.5 ML DOSE IMVAC ONE (08:00)
[2022-07-10] MEDS ORDERED: propofoL 200 MG/20 ML VIAL IV ONE ×2 (10:50→11:06)
[2022-07-10] MEDS ORDERED: FENTANYL CITR 100 MCG/2 ML ONE (10:50)
[2022-07-10] MEDS ORDERED: MIDAZOLAM HCL 2 MG/2 ML INJ ONE (10:50)
[2022-07-10] MEDS ORDERED: ROCURONIUM 50 MG/5 ML VIAL IV ONE (10:50)
[2022-07-10] MEDS ORDERED: dexAMETHasone 10 MG/ML VIAL ONE (10:50)
[2022-07-10] MEDS ORDERED: LIDOCAINE 2% MPF 5 ML VIAL ONE ×2 (10:51→11:21)
[2022-07-10] MEDS ORDERED: GLYCOPYRROLATE 0.2 MG/ML SYR ONE ×3 (11:03→12:54)
[2022-07-10] MEDS ORDERED: Ringers Lactate 1,000 ML IV ONE ×2 (11:06→12:52)
[2022-07-10] MEDS ORDERED: KETOROLAC 30 MG/ML INJ ONE (12:54)
[2022-07-10] MEDS ORDERED: NEOSTIGMINE 1 MG/ML -5 ML ONE (12:54)
[2022-07-10] MEDS ORDERED: MORPHINE 10 MG/ML VIAL ONE (13:04)
--- NOTE | 2022-07-10 13:24 | P.HP ---
Date of Service: 07/10/22 PC: This 46-year-old presents presented to the emergency room with severe right upper quadrant abdominal pain for diagnosis and treatment. HPC: Patient had sudden onset of right upper quadrant abdominal pain, radiating to his back, that he described as extremely severe. He had an episode of this a few weeks ago. He was brought to our facility where he underwent a laparoscopic cholecystectomy. However we were unable to establish airway and he was discharged home on conservative measures. I had seen him a week or 2 ago in the in my office and he was going to wait until August. However this episode came on him and he could no longer stand the pain and return to our ER. PSHx: Negative PMHx: Hypertension Social Hx: Negative Sys R: No cough, wheeze, shortness of breath. No chest pain or palpitations. Does have sleep apnea by history. O/E: Awake alert vital signs are stable, obviously uncomfortable HEENT: Not jaundiced Chest: Air entry equal bilaterally Abd: Tender in the right upper quadrant [place]: Intact Data: Ultrasound was done which shows stones most likely stuck in the neck Impression: Acute cholecystitis with cholelithiasis, biliary colic Plan: I will taken the operating room for laparoscopic cholecystectomy with intraoperative cholangiogram. The risks of this procedure have been discussed. The possibility of bleeding, infection, injury to bile ducts blood vessels and intestines has been described. The fact will have to be done with general anesthesia, was once again explained to the patient. He as discussed this with my anesthesia colleagues. He understands however and wants to proceed.
[2022-07-10] MEDS ORDERED: HYDROCODONE/APAP 7.5/325 MG TAB PO PRN (13:28)
--- NOTE | 2022-07-10 13:28 | P.OP ---
Preoperative diagnosis: Acute cholecystitis with cholelithiasis, biliary colic Postoperative diagnosis: The same Primary procedure: Laparoscopic cholecystectomy Secondary procedure: Cholangiogram Anesthesia: General Estimated blood loss: Less than 10 cc Specimen: 1 gallbladder and contents Operative Technique: The patient brought the operating room and placed supine on the table. After the careful induction of general anesthesia, the area of the abdomen was prepped with a DuraPrep solution, and he was draped in usual aseptic manner. A subumbilical incision was made. This was brought down through the skin and subcutaneous tissue. The Visiport was used to enter the peritoneal cavity and created pneumoperitoneum to approximately 12 mmHg. Under direct vision a 5 mm trocar was placed in the upper midline, and 2 other 5 mm trochars on the right lateral side of the abdomen. The patient was now placed in reverse Trendelenburg. The table was turned to the right. We could now visualize the right upper quadrant. We could see a distended and mildly inflamed gallbladder in this area. A needle was used to aspirate the contents of the gallbladder. We can now place a grasper on the fundus. Another was placed on by Oilvier's pouch. Applying lateral traction we were able to dissect and expose the cystic duct and artery. Attention was turned towards the cystic duct. A clip was placed between the gallbladder and the cystic duct. An opening was made into the cystic duct through which we obtained a normal intraoperative cholangiogram the cholangiocatheter was then removed. Clips were placed on the distal portion of the cystic duct. The duct was now fully transected. The cystic artery was identified clipped and divided in the usual way with the electrocautery. The gallbladder was then dissected free for the liver bed placed into an Endo Catch and brought out through the umbilical trocar site at this point inspection of the abdominal cavity revealed adequate hemostasis. The irrigating fluid was aspirated from the peritoneal cavity. The umbilical trocar site was approximated using the Endo Close and an absorbable suture. At this point the pneumoperitoneum was collapsed, was trochars removed, and the sutures tied. Montez were then applied to the skin At the end of the procedure he was in a stable condition was sent to the recovery room. Needle sponge and instrument count were correct. No drains were placed. Complications: None Transferred to: Recovery Room Condition: Good
--- NOTE | 2022-07-10 13:33 | RAD REPORT ---
EXAM DESCRIPTION: RAD - Cholangiogram Oper-Xray Or - 07/10/2022 1:28 pm CLINICAL HISTORY: LAP RAFAT WITH IOC COMPARISON: Abdomen Exam Limited dated 07/10/2022 FINDINGS: Cystic duct injection was performed by operating surgeon. There is no evidence of a retain ed common bile duct stone. Total fluoro time: 0.1 minutes. Seven fluoroscopic images obtained. IMPRESSION: No evidence of retained common duct stone.
[2022-07-10] MEDS: Ringers Lactate 1,000 ML IV SCH (14:00)
--- NOTE | 2022-07-10 14:32 | RAD REPORT ---
EXAM DESCRIPTION: US - Abdomen Exam Limited - 07/10/2022 3:16 am CLINICAL HISTORY: 46 years, Male, ABD PAIN COMPARISON: None. TECHNIQUE: Utilizing a curved array transducer, real-time ultrasound evaluation of the abdominal vis cera was performed. Color Doppler imaging was used to assess vascular flow. FINDINGS: The liver , pancreas, right kidney kidneys was not evaluated. The gallbladder demonstrate the presence of echogenic structure posterior shadowing largest one withi n the gallbladder neck measuring 1.4 cm. No pericholecystic fluid. There is gallbladder wall measur es 3.2 mm which is in the upper normal size. The common bile duct measures 3.5 mm. No intra or ex trahepatic biliary duct dilatation was identified. IMPRESSION: Cholelithiasis and gallbladder wall thickening compatible with acute cholecystitis. If c oncern follow-up with HIDA scan. Electronically signed by: Cleveland Adams MD 07/10/2022 3:31 AM SIGNS SALES REPRESENTATIVE Due to temporary technical issues with the PACS/Fluency reporting system, reports are being signed by the in house radiologists without review as a courtesy to insure prompt reporting. The interpreting radiologist is fully responsible for the content of the report.
[2022-07-11] MEDS: Ringers Lactate 1,000 ML IV SCH
[2022-07-11 04:07] LABS: Absolute Lymphocytes (CBC) 0.8 K/uL (0.7-4.9); Hematocrit 41.9 % (39.6-49.0); Lymphocytes % 8.1 % (15.3-44.8); MCV 79.9 fL (80-100); MPV 8.2 fL (7.6-11.3); RBC Red Blood Cell Count 5.24 M/uL (4.33-5.43)
[2022-07-11 04:23] LABS: Potassium 4.9 mmol/L (3.5-5.1)
[2022-07-11] MEDS ORDERED: PANTOPRAZOLE 40MG TABLET PO ONE (06:08)
[2022-07-11 11:23] VITALS: O2SAT 98
[2022-07-11 11:45] VITALS: BP 150/95; TEMP 98.4
== END 2022-07-11 12:26 | disposition home or self-care (01) | DRG 419 ==
LOC: ER 02:22 → ERHOLD 05:13 → 4TH 13:37
PROVIDERS: ADMIT Surgery; ATTEND Surgery
PROC: BF121ZZ Fluoroscopy of Gallbladder using Low Osmolar Contrast (ICD-10-PCS; 2022-07-10)
PROC: 0FT44ZZ Resection of Gallbladder, Percutaneous Endoscopic Approach (ICD-10-PCS; principal; 2022-07-10 13:00)
DX: K80.00 Calculus of gallbladder with acute cholecystitis without obstruction (principal); I10 Essential (primary) hypertension; G47.30 Sleep apnea, unspecified; Z79.899 Other long term (current) drug therapy; Z96.659 Presence of unspecified artificial knee joint; Z20.822 Contact with and (suspected) exposure to COVID-19
CPT/HCPCS: 36415; 74300; 76705; 80048; 80053; 81003; 81015; 83690; 85025; 87811; 88304; 94010; 96365; 96366; 96375; 99285; J1100; J2001; J2250; J2405; J2704; J2710; J3010; J7030; J7120

== ENCOUNTER 2022-10-14 14:22 | Emergency (ER) | payer OTHER ==
[2022-10-14 15:35] LABS: SARS-COV-2 RT PCR NEGATIVE (NEGATIVE)
--- NOTE | 2022-10-14 15:44 | ER ---
Nurse's Notes [facility] Name: Roni Gallagher Jr Age: 46 yrs Sex: Male : 1975 Arrival Date: 10/14/2022 Time: 14: Bed 12 Private MD: Ja Kirkpatrick Diagnosis: Fever, unspecified;Cough Presentation: 10/14 14:28 Chief complaint: Body aches, sinus congestion, headache, and malaise x 2 days. Coworker hb tested COVID positive. Coronavirus screen: At this time, the client does not indicate any symptoms associated with coronavirus-19. Ebola Screen: No symptoms or risks identified at this time. Initial Sepsis Screen: Does the patient meet any 2 criteria? No. Patient's initial sepsis screen is negative. Does the patient have a suspected source of infection? No. Patient's initial sepsis screen is negative. Risk Assessment: Do you want to hurt yourself or someone else? Patient reports no desire to harm self or others. Onset of symptoms was October 13, 2022. 14:28 Method Of Arrival: Ambulatory hb 14:28 Acuity: MELONY 4 hb Historical: - Allergies: 14:30 No Known Allergies; hb - Home Meds: 14:30 lisinopril 20 mg Oral tab 1 tab once daily [Active]; hb - PMHx: 14:30 "Difficult Intubation"; Hypertensive disorder; hb - PSHx: 14:30 knee replacement; hb - Immunization history:: Client reports receiving the 1st dose of the Covid vaccine. - Social history:: Smoking status: Patient denies any tobacco usage or history of. Vital Signs: 14:28 BP 143 / 86; Pulse 105; Resp 20; Temp 97.7; Pulse Ox 99% on R/A; Weight 117.93 kg; hb Height 5 ft. 11 in. (180.34 cm); Pain 6/10; 14:28 Body Mass Index 36.26 (117.93 kg, 180.34 cm) hb ED Course: :25 Patient arrived in ED. mr 14:26 Ja Kirkpatrikc is Private Physician. mr 14:26 [facility] Alfonso [facility]C [facility]. snw 14:26 Yohannes Hassan MD is Attending Physician. snw 14:29 Triage completed. hb 14:30 Arm band placed on. hb Administered Medications: No medications were administered Outcome: 15:43 Discharge ordered by MD. schaffer 15:54 Discharged to home ambulatory. hb 15:54 Condition: stable 15:54 Discharge instructions given to patient, Instructed on discharge instructions, follow up and referral plans. medication usage, Demonstrated understanding of instructions, follow-up care, medications, Prescriptions given X 3. 15:54 Patient left the ED. hb Signatures: Beba Alfonso, [employer] HAND-Veena Vasquez mr Renetta Galeano, RN RN hb
--- NOTE | 2022-10-14 15:44 | EDPHYS ---
Physician Documentation [facility] Name: Roni Gallagher Jr Age: 46 yrs Sex: Male : 1975 Arrival Date: 10/14/2022 Time: 14:25 Bed 12 Private MD: Ja Kirkpatrick ED Physician Yohannes Hassan HPI: 10/14 15:05 This 46 yrs old Black Male presents to ER via Ambulatory with complaints of Fever, Body snw aches. 15:05 The patient or guardian reports cough, described as moderate, flu symptoms, low-grade snw fever, no appetite. Onset: The symptoms/episode began/occurred acutely. Severity of symptoms: At their worst the symptoms were mild. The patient has not experienced similar symptoms in the past. The patient has not recently seen a physician. 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 Historical: - Allergies: 14:30 No Known Allergies; hb - Home Meds: 14:30 lisinopril 20 mg Oral tab 1 tab once daily [Active]; hb - PMHx: 14:30 "Difficult Intubation"; Hypertensive disorder; hb - PSHx: 14:30 knee replacement; hb - Immunization history:: Client reports receiving the 1st dose of the Covid vaccine. - Social history:: Smoking status: Patient denies any tobacco usage or history of. ROS: 15:04 Eyes: Negative for injury, pain, redness, and discharge. snw 15:04 Neck: Negative for injury, pain, and swelling, Cardiovascular: Negative for chest pain, palpitations, and edema. 15:04 Abdomen/GI: Negative for abdominal pain, nausea, vomiting, diarrhea, and constipation, Back: Negative for injury and pain, : Negative for injury, bleeding, discharge, and swelling, MS/Extremity: Negative for injury and deformity, Skin: Negative for injury, rash, and discoloration, Neuro: Negative for headache, weakness, numbness, tingling, and seizure, Psych: Negative for depression, anxiety, suicide ideation, homicidal ideation, and hallucinations. 15:04 Constitutional: Positive for body aches, malaise. 15:04 ENT: Positive for sinus congestion, sore throat. 15:04 Respiratory: Positive for cough. Exam: 15:04 Constitutional: This is a well developed, well nourished patient who is awake, alert, snw and in no acute distress. Head/Face: Normocephalic, atraumatic. Eyes: Pupils equal round and reactive to light, extra-ocular motions intact. Lids and lashes normal. Conjunctiva and sclera are non-icteric and not injected. Cornea within normal limits. Periorbital areas with no swelling, redness, or edema. ENT: Nares patent. No nasal discharge, no septal abnormalities noted. Tympanic membranes are normal and external auditory canals are clear. Oropharynx with no redness, swelling, or masses, exudates, or evidence of obstruction, uvula midline. Mucous membranes moist. Neck: Trachea midline, no thyromegaly or masses palpated, and no cervical lymphadenopathy. Supple, full range of motion without nuchal rigidity, or vertebral point tenderness. No Meningismus. Chest/axilla: Normal chest wall appearance and motion. Nontender with no deformity. No lesions are appreciated. Cardiovascular: Tachycardic rate and rhythm with a normal S1 and S2. No gallops, murmurs, or rubs. Normal PMI, no JVD. No pulse deficits. Respiratory: Lungs have equal breath sounds bilaterally, clear to auscultation and percussion. No rales, rhonchi or wheezes noted. No increased work of breathing, no retractions or nasal flaring. Abdomen/GI: Soft, non-tender, with normal bowel sounds. No distension or tympany. No guarding or rebound. No evidence of tenderness throughout. Back: No spinal tenderness. No costovertebral tenderness. Full range of motion. Skin: Warm, dry with normal turgor. Normal color with no rashes, no lesions, and no evidence of cellulitis. MS/ Extremity: Pulses equal, no cyanosis. Neurovascular intact. Full, normal range of motion. Neuro: Awake and alert, GCS 15, oriented to person, place, time, and situation. Cranial nerves II-XII grossly intact. Motor strength 5/5 in all extremities. Sensory grossly intact. Cerebellar exam normal. Normal gait. Vital Signs: 14:28 BP 143 / 86; Pulse 105; Resp 20; Temp 97.7; Pulse Ox 99% on R/A; Weight 117.93 kg; hb Height 5 ft. 11 in. (180.34 cm); Pain 6/10; 14:28 Body Mass Index 36.26 (117.93 kg, 180.34 cm) hb MDM: 14:42 Patient medically screened. snw 15:45 Differential diagnosis: tracheal injury, bronchitis, flu, URI. Data reviewed: vital snw signs, nurses notes, lab test result(s). Care significantly affected by the following chronic conditions: Hypertension. Counseling: I had a detailed discussion with the patient and/or guardian regarding: the historical points, exam findings, and any diagnostic results supporting the discharge/admit diagnosis, lab results, the need for outpatient follow up, to return to the emergency department if symptoms worsen or persist or if there are any questions or concerns that arise at home. Special discussion: I have referred the patient to see his PCP for further evaluation of high blood pressure. Based on the history and exam findings, there is no indication for further emergent testing or inpatient evaluation. I discussed with the patient/guardian the need to see the primary care provider for further evaluation of the symptoms. 10/14 14:41 Order name: COVID-19/FLU A+B; Complete Time: 15:42 snw Administered Medications: No medications were administered Disposition Summary: 10/14/22 15:43 Discharge Ordered Location: Home snw Condition: Stable snw Diagnosis - Fever, unspecified snw - Cough snw Followup: snw - With: Emergency Department - When: As needed - Reason: Worsening of condition Followup: snw - With: Private Physician - When: 2 - 3 days - Reason: Recheck today's complaints, Continuance of care, Re-evaluation by your physician Discharge Instructions: - Discharge Summary Sheet snw - Fever, Adult snw - Hypertension, Adult snw - Cough, Adult snw - Managing Your Hypertension snw Forms: - Medication Reconciliation Form snw - Thank You Letter snw - Antibiotic Education snw - Prescription Opioid Use snw - Work release form snw Prescriptions: - Zyrtec 10 mg Oral Tablet - take 1 tablet by ORAL route once daily As needed; 20 tablet; Refills: 0, snw Product Selection Permitted - Zithromax Z-Armando 250 mg Oral Tablet - take 1 tablet by ORAL route as directed for 5 days Day 1 - take two (2) tablets snw one time. Day 2, 3, 4 , 5 take one (1) tablet once daily.; 6 tablet; Refills: 0, Product Selection Permitted - Pepcid 20 mg Oral Tablet - take 1 tablet by ORAL route once daily; 20 tablet; Refills: 0, Product snw Selection Permitted Signatures: Dispatcher [employer] Beba Biggs, COREMAKER EXPERIMENTAL-C [employer]AKER EXPERIMENTAL-Csnw Renetta Galeano, RN RN hb
== END 2022-10-14 15:54 | disposition home or self-care (01) ==
LOC: ER 14:22
DX: R50.9 Fever, unspecified (principal); R05.9 Cough, unspecified; Z20.822 Contact with and (suspected) exposure to COVID-19; I10 Essential (primary) hypertension
CPT/HCPCS: 0240U; 99282